=== PATIENT | male | born 1980 | race Caucasian/White ===

== ENCOUNTER 2021-07-13 19:44 | Emergency (ER) | payer OTHER ==
[~2021-07-13] VITALS: Ht 177.8 cm; Wt 104.3 kg
[2021-07-13 20:38] LABS: HEMOGLOBIN 15.9 gm/dl (14.0-17.5); RED BLOOD COUNT 5.04 M/UL (4.20-5.50); WHITE BLOOD COUNT 3.9 K/UL (4.5-11.0)
[2021-07-13 20:53] LABS: BUN/CREATININE RATIO 14 (0-10)
[2021-07-13] MEDS ORDERED: PULMICORT FLEX90 MCG INH (21:49)
[2021-07-13] MEDS ORDERED: DECADRON6 MG PO (21:49)
[2021-07-13] MEDS ORDERED: ZITHROMAX250 MG PO (21:49)
[2021-07-13] MEDS ORDERED: ZOFRAN ODT 4 MG4 MG GT (21:54)
== END 2021-07-14 | disposition home or self-care (01) ==
LOC: ER1 19:44
PROVIDERS: Family Medicine
DX: U07.1 COVID-19 (principal); Z23 Encounter for immunization; E11.9 Type 2 diabetes mellitus without complications
CPT/HCPCS: 71045; 80053; 83615; 85025; 85379; 85652; 86140; 93005; 96374; 99285; J2405; M0243